=== PATIENT | male | born 1945 | race Caucasian/White ===

== ENCOUNTER → 2019-08-20 11:56 | Outpatient (BNVA) | payer MEDICARE, OTHER, SELFPAY | PROVIDERS: Family Provider Nurse Practitioner; PCP Nurse Practitioner; Visit Provider Nurse Practitioner | DX: R10.9 Unspecified abdominal pain (principal) | CPT/HCPCS: 80053; 85025 ==

== ENCOUNTER 2019-08-27 12:21 | Outpatient (CLI) | payer MEDICARE, OTHER, SELFPAY ==
--- NOTE | 2019-08-27 12:32 | CT_ITS ---
WS: [id number] CT ABDOMEN AND PELVIS NONCONTRAST HISTORY: abdomen pain TECHNIQUE: Imaging performed through the abdomen and pelvis. Coronal and sagittal reformats are submi tted. All CT scans at [facility] use at least one of these dose optimization techniques: automated exposure control; mA and/or kV adjustment per patient size (includes targeted exams where d ose is matched to clinical indication); or iterative reconstruction. DLP: 1197.35 mGycm COMPARISON: None available. Lower thorax: Lung bases are clear. Small hiatal hernia. Liver: Normal size liver with diffuse mild hepatic steatosis. No bile duct dilatation. Gallbladder: Unremarkable. Pancreas: Normal. Spleen: Normal size spleen with granulomata. Adrenal glands: Normal. Right kidney: Mild perinephric stranding. Exophytic low-attenuation nodule measuring 9 mm from the up per pole. Left kidney: Mild perinephric stranding no obstruction. Mild atherosclerosis with no aneurysm. No free fluid, intraperitoneal air or significant lymphadenopathy. GI tract: Moderate fecal retention throughout the colon. No significant diverticular disease. No mass or obstruction. The appendix is not definitely identified. No acute inflammatory process. Abdominal wall: Intact. Pelvis: Inguinal canals are patent bilaterally. There is no herniation of GI tract. No free fluid or adenopathy in the pelvis. Prostate gland is slightly enlarged. Benign appearing inguinal lymph nodes. Osseous structures: Degenerative disc disease and spondylosis in the lumbar spine. Slight reverse S-s haped curvature thoracolumbar spine. Mild degenerative changes at the hip joints. CT/CT abdomen pelvis wo con [id number] IMPRESSION: 1. No acute abdominal or pelvic abnormalities are identified. 2. Mild constipation with no GI tract obstruction. 3. No adenopathy. 4. Mild perinephric stranding with no renal obstruction.
[2019-08-27] MEDS: iohexol 300 mg/mL 50 mL Btl PO (14:19)
== END 2019-08-27 12:22 | disposition home or self-care (01) ==
LOC: RADWPI 12:27
PROVIDERS: Family Provider Nurse Practitioner; PCP Nurse Practitioner; Visit Provider Nurse Practitioner
DX: K59.00 Constipation, unspecified (principal); R10.9 Unspecified abdominal pain
CPT/HCPCS: 74176

== ENCOUNTER → 2019-10-21 09:09 | Outpatient (BNVA) | payer MEDICARE, OTHER, SELFPAY | PROVIDERS: Family Provider Nurse Practitioner; PCP Nurse Practitioner; Visit Provider Nurse Practitioner | DX: K59.01 Slow transit constipation (principal) | CPT/HCPCS: 74018; 81000; 85025 ==

== ENCOUNTER 2019-11-19 09:12 | Day surgery (SDC) | payer MEDICARE, OTHER, SELFPAY ==
[2019-11-15 13:48] VITALS: BMI 37.7
[2019-11-19 09:41] VITALS: BP 129/68; PULSE 71; RESP 18; TEMP 36.7; O2SAT 94
[2019-11-19] MEDS: sodium chloride 0.9% 1,000 ML 30 ML IV (09:55)
--- NOTE | 2019-11-19 10:29 | W.PM.OPSUD ---
Surgery/Procedure H&P Update DATE OF PROCEDURE: November 19, 2019 DATE H&P PERFORMED: 11/01/19 H&P UPDATE INFORMATION: I have reviewed H&P completed within last 30 days, I have examined patient prior to procedure and No changes to prior documentation PREOP DIAGNOSIS: History of colon polyps PLANNED PROCEDURE: Operation Date: 11/19/19 11:10 Proposed Procedures p Colonoscopy 60185 Z86.010(Not Applicable) - Suresh Kumar MD
--- NOTE | 2019-11-19 10:37 | ANES.PREANE2 ---
Pre-Anesthetic Assessment Pre-Anesthetic Assessment: Height/Weight: Height 1.73 m Weight 112.491 kg Temp Pulse Resp BP Pulse Ox 98.1 F 71 18 129/68 94 11/19/19 09:41 11/19/19 09:41 11/19/19 09:41 11/19/19 09:41 11/19/19 09:41 Preop Diagnosis: History of colon polyps Proposed Procedure: Operation Date: 11/19/19 11:10 Proposed Procedures p Colonoscopy 41286 Z86.010(Not Applicable) - Suresh Kumar MD Was Beta Selena taken within 24 hours: N/A Last intake: Intake Last Liquid Date 11/18/19 Last Solid Date 11/17/19 Last Intake: 23:00 Social: Social History: No alcohol and No tobacco Exam: Pre-Anes Outpt Exam: alert, oriented x 3, clear to auscultation bilaterally and regular rate & rhythm Airway: Submandibular: WNL Cervical ROM: WNL MP: 2 Dentition: False Pulmonary: Pulmonary: None reported CV/HEM: CV/HEM: None reported : : None reported Hepatic: Hepatic: None reported GI: GI: None reported Metabolic: Metabolic: None reported Musc/skel: Musc/skel: Lower Back Pain and OA/DJD Neuropsych: Neuropsych: None reported Anesthetic Plan: ASA status: 2 Anesthesia: Anesthesia Evaluation and MAC Risk of > 500 ml blood loss (7ml/kg in children): No Meds/Allergies Current Medications: Current Medications Generic Name Dose Route Start Last Admin Trade Name Freq PRN Reason Stop Dose Admin Sodium Chloride 1,000 mls @ 30 ml s/hr 11/19/19 09:45 11/19/19 09:55 Sodium Chloride 0.9% IV 11/20/19 09:44 30 mls/hr .Q24H SAM Administration PFSH Anesthesia PFSH: Medical History BPH with obstruction/lower urinary tract symptoms Chronic prostatitis Elevated PSA History of colon polyps Lumbar degenerative disc disease Surgical History History of carpal tunnel surgery BILATERAL History of circumcision History of colonoscopy with polypectomy (~2017) History of prostate biopsy 5 TIMES-NEGATIVE History of umbilical hernia repair S/P arthroscopy of left shoulder Family History Father , AT AGE 64,LUNG AND HEART DISEASE No problems noted. Mother , AT AGE 52 SUICIDE Suicide Sister Cancer PANCREATIC Denies family history of Anesthesia complication Bleeding disorder Social History Smoking and tobacco status: former smoker Second hand smoke exposure: No Smoking risk assessment/counseling performed?: No Alcohol intake: current Alcohol intake frequency: holidays/special occasions only Desire information about alcohol rehabilitation?: No Counseling given: No Desire information about substance/drug rehabilitation?: No Counseling given: No Adopted: No Caregiver/support person: No Lives independently: Yes Household members: significant other Marital status: Current occupational status: retired History of recent travel: No Current gender identity: Male Data Anesthesia Cardiac Studies: No Data to Display
[2019-11-19 11:21] VITALS: BP 122/64; PULSE 54; RESP 16; TEMP 36.5; O2SAT 92
[2019-11-19 11:35] VITALS: BP 139/69; PULSE 55; RESP 18; O2SAT 94
== END 2019-11-19 11:42 | disposition home or self-care (01) ==
PROVIDERS: PCP Nurse Practitioner; Visit Provider Surgery
PROC: 0DJD8ZZ Inspection of Lower Intestinal Tract, Via Natural or Artificial Opening Endoscopic (ICD-10-PCS; CPT 45378; principal; 2019-11-19 11:05)
DX: Z86.010 Personal history of colon polyps (principal); K57.30 Diverticulosis of large intestine without perforation or abscess without bleeding; N40.1 Benign prostatic hyperplasia with lower urinary tract symptoms; N13.8 Other obstructive and reflux uropathy; Z87.891 Personal history of nicotine dependence; M19.90 Unspecified osteoarthritis, unspecified site
CPT/HCPCS: 12345; 45378; J2704; J7030

== ENCOUNTER → 2020-02-25 10:25 | Outpatient (BNVA) | payer MEDICARE, OTHER, SELFPAY | PROVIDERS: PCP Nurse Practitioner; Visit Provider Urology | DX: N40.1 Benign prostatic hyperplasia with lower urinary tract symptoms (principal); R97.20 Elevated prostate specific antigen [PSA]; N13.8 Other obstructive and reflux uropathy | CPT/HCPCS: 81001; 84153 ==

== ENCOUNTER → 2020-03-10 13:09 | Outpatient (BNVA) | payer MEDICARE, OTHER, SELFPAY | PROVIDERS: PCP Nurse Practitioner; Referring Provider Nurse Practitioner; Visit Provider Orthopaedic Surgery | DX: M17.12 Unilateral primary osteoarthritis, left knee (principal) | CPT/HCPCS: 73560; 73565 ==

== ENCOUNTER → 2020-04-22 12:47 | Outpatient (BNVA) | payer MEDICARE, OTHER, SELFPAY | PROVIDERS: PCP Nurse Practitioner; Visit Provider Nurse Practitioner | DX: M25.432 Effusion, left wrist (principal); M25.532 Pain in left wrist | CPT/HCPCS: 73110; 80053; 85025 ==

== ENCOUNTER → 2020-05-27 10:18 | Outpatient (BNVA) | payer MEDICARE, OTHER, SELFPAY | PROVIDERS: PCP Nurse Practitioner; Visit Provider Urology | DX: R97.20 Elevated prostate specific antigen [PSA] (principal); N40.1 Benign prostatic hyperplasia with lower urinary tract symptoms; N13.8 Other obstructive and reflux uropathy | CPT/HCPCS: 84153 ==

== ENCOUNTER → 2020-06-02 12:56 | Outpatient (BNVA) | payer MEDICARE, OTHER, SELFPAY | PROVIDERS: PCP Nurse Practitioner; Visit Provider Urology | DX: R97.20 Elevated prostate specific antigen [PSA] (principal); N40.1 Benign prostatic hyperplasia with lower urinary tract symptoms; N13.8 Other obstructive and reflux uropathy | CPT/HCPCS: 81003 ==

== ENCOUNTER 2020-12-29 12:52 | Outpatient (CLI) | payer MEDICARE, OTHER, SELFPAY | END 2020-12-29 12:53 | disposition home or self-care (01) | PROVIDERS: PCP Nurse Practitioner; Visit Provider Urology | DX: R97.20 Elevated prostate specific antigen [PSA] (principal) | CPT/HCPCS: 84153 ==

== ENCOUNTER → 2021-04-07 13:03 | Outpatient (BNVA) | payer MEDICARE, OTHER, SELFPAY | PROVIDERS: PCP Nurse Practitioner; Visit Provider Urology | DX: R97.20 Elevated prostate specific antigen [PSA] (principal); N40.1 Benign prostatic hyperplasia with lower urinary tract symptoms; N13.8 Other obstructive and reflux uropathy | CPT/HCPCS: 84153 ==

== ENCOUNTER → 2021-06-22 10:44 | Outpatient (BNVA) | payer MEDICARE, OTHER, SELFPAY | PROVIDERS: PCP Nurse Practitioner; Visit Provider Urology | DX: R97.20 Elevated prostate specific antigen [PSA] (principal); N40.1 Benign prostatic hyperplasia with lower urinary tract symptoms; N13.8 Other obstructive and reflux uropathy | CPT/HCPCS: 84153 ==

== ENCOUNTER → 2021-06-29 10:49 | Outpatient (BNVA) | payer MEDICARE, OTHER, SELFPAY | PROVIDERS: PCP Nurse Practitioner; Visit Provider Urology | DX: N40.1 Benign prostatic hyperplasia with lower urinary tract symptoms (principal); N13.8 Other obstructive and reflux uropathy | CPT/HCPCS: 81003 ==

== ENCOUNTER → 2021-07-27 11:17 | Outpatient (BNVA) | payer MEDICARE, OTHER, SELFPAY | PROVIDERS: PCP Nurse Practitioner; Visit Provider Nurse Practitioner | DX: N40.1 Benign prostatic hyperplasia with lower urinary tract symptoms (principal); N13.8 Other obstructive and reflux uropathy; M17.12 Unilateral primary osteoarthritis, left knee; Z13.6 Encounter for screening for cardiovascular disorders | CPT/HCPCS: 80053; 80061; 85025 ==

== ENCOUNTER → 2021-12-14 09:16 | Outpatient (BNVA) | payer MEDICARE, OTHER, SELFPAY | PROVIDERS: PCP Nurse Practitioner; Visit Provider Nurse Practitioner | DX: N40.1 Benign prostatic hyperplasia with lower urinary tract symptoms (principal); N13.8 Other obstructive and reflux uropathy; M17.12 Unilateral primary osteoarthritis, left knee; Z13.6 Encounter for screening for cardiovascular disorders | CPT/HCPCS: 80053; 80061; 85025 ==

== ENCOUNTER → 2022-03-09 10:12 | Outpatient (BNVA) | payer MEDICARE, OTHER, SELFPAY | PROVIDERS: PCP Nurse Practitioner; Visit Provider Urology | DX: R97.20 Elevated prostate specific antigen [PSA] (principal) | CPT/HCPCS: 84153 ==

== ENCOUNTER → 2022-03-15 12:49 | Outpatient (BNVA) | payer MEDICARE, OTHER, SELFPAY | PROVIDERS: PCP Nurse Practitioner; Visit Provider Urology | DX: N40.1 Benign prostatic hyperplasia with lower urinary tract symptoms (principal); N13.8 Other obstructive and reflux uropathy; R97.20 Elevated prostate specific antigen [PSA] | CPT/HCPCS: 99213 ==

== ENCOUNTER → 2022-06-07 11:21 | Outpatient (BNVA) | payer MEDICARE, OTHER, SELFPAY | PROVIDERS: PCP Nurse Practitioner; Visit Provider Nurse Practitioner | DX: Z13.6 Encounter for screening for cardiovascular disorders (principal); N40.1 Benign prostatic hyperplasia with lower urinary tract symptoms; N13.8 Other obstructive and reflux uropathy; M17.12 Unilateral primary osteoarthritis, left knee | CPT/HCPCS: 80053; 80061; 85025 ==

== ENCOUNTER → 2022-08-19 09:36 | Outpatient (BNVA) | payer MEDICARE, OTHER, SELFPAY | PROVIDERS: PCP Nurse Practitioner; Visit Provider Nurse Practitioner | DX: N40.1 Benign prostatic hyperplasia with lower urinary tract symptoms (principal); N13.8 Other obstructive and reflux uropathy | CPT/HCPCS: 81000; 87086 ==

== ENCOUNTER 2023-03-16 08:28 | Outpatient (CLI) | payer MEDICARE, OTHER, SELFPAY ==
[2023-03-16 09:14] VITALS: BMI 29.9
--- NOTE | 2023-03-16 09:16 | ECG_ITS ---
[facility] Test Date: 2023-03-16 Pat Name: Lauri James Department: Room: Gender: Male Chief Engineer Research: Nora Briones : 1945 Requested By: Christina De Paz Order Number: [id number] Cornelius MD: Calixto Romo M.D. Interpretive Statements NAME OF STUDY: EXERCISE SESTAMIBI STRESS TEST INDICATION: [Htn, Family HX, ] EXERCISE DATA: The patient was exercised by Hayder protocol. Baseline heart rate was 55 beats per minute. Baseline blood pressure was 159/78 millimeters of mercury. Target heart rate was 121 beats per minute. Maximum heart rate achieved was 126, which was 104% of the target heart rate. Maximum blood pressure was 268/68 millimeters of mercury. Total exercise time was 4 minutes 13 seconds. Maximum METs achieved was 7. The reason for ending the test was maximal effort was achieved. The patient complained of shortness of breath during the stress test, which then resolved at the end of the test. ELECTROCARDIOGRAM: BASELINE: Showed sinus rhythm, normal axis, no significant ST-T changes at the baseline noted. [] EXERCISE: At the peak exercise level, [] No significant ST-T changes suggestive of ischemia noted. PVCs were seen. [] RECOVERY: During the recovery period, heart rate dropped appropriately. No significant ST-T changes in the recovery suggestive of ischemia noted. [] CONCLUSION: 1. Exercise capacity poor 2. Heart rate response was appropriate 3. Blood pressure response was hypertensive. 4. Symptoms not suggestive of ischemia. 5. Electrocardiogram portion of the stress test was not suggestive of ischemia. 6. Nuclear scan will be documented separately. Electronically Signed On 03-27-2023 15:42:49 CDT by Calixto Romo M.D. [email or web address]
--- NOTE | 2023-03-16 09:16 | NMCV_ITS ---
NM trudy perf SPECT r/s* [id number] Lauri James Age: 77 Gender: M : 1945 Exam Date: 03/16/2023 09:16 Ordering Phys: Christina De Paz CLINICAL SPECIALTY REP Technologist: EARL Cooper Exam Location: [facility] Indications: HYPERTENSION STRESS TEST Please see separate stress test report in [facility] for full findings IMAGE PROTOCOL Rest/Stress 1 Exercise Day Radiopharmaceutical Dose (mCi) Administration Site Administered by Rest: Tc-99m 11.0 IV EARL Cooper Sestamikirill Stress:Tc-99m 33.0 IV EARL Calixto Sestamibi Rest: 16-Mar-2023 60 Discovery 630 Stress: 16-Mar-2023 30 Discovery 630 Radiopharmaceutical was injected at 85 % maximum heart rate. Supine position only as patient was unable to lay prone. SPECT RESULTS Technical Quality: Excellent Raw Data Analysis: Normal Image Corrections: No attenuation or motion correction applied Summed Stress Score: 1 Summed Rest Score: 3 Summed Difference Score: 0 PERFUSION FINDINGS Small sized, fixed perfusion defect noted in the inferior wall. 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 FUNCTIONAL RESULTS (calculated via Gated SPECT) Stress Image LV EF (%): 68 Stress EDV (mL):117 TID: 0.88 Stress ESV (mL):38 FUNCTIONAL FINDINGS: There is normal left ventricular systolic function. IMPRESSIONS 1. Abnormal myocardial perfusion imaging with small sized prior infarct seen in the territory. 2. LV systolic function is normal Calixto Romo MD (Electronically Signed) Final Date: 17 March 2023 13:56 S
[2023-03-16 11:03] VITALS: BP 174/87; PULSE 76
== END 2023-03-16 08:29 | disposition home or self-care (01) ==
LOC: CDL 08:30
PROVIDERS: PCP Registered Nurse; Visit Provider Registered Nurse
DX: I10 Essential (primary) hypertension (principal); Z82.49 Family history of ischemic heart disease and other diseases of the circulatory system; I25.2 Old myocardial infarction
CPT/HCPCS: 36415; 78452; 93017; A9500

== ENCOUNTER 2023-05-05 11:16 | Outpatient (CLI) | payer MEDICARE, OTHER, SELFPAY ==
--- NOTE | 2023-05-05 11:45 | US_ITS ---
WS: [id number] ULTRASOUND SOFT TISSUES RIGHT face. HISTORY: R22.0 - Localized swelling, mass and lump, head COMPARISON: None available. TECHNIQUE: 2-D and color Doppler imaging is submitted. Palpable area along the RIGHT jaw corresponds to a hypoechoic nodule measuring 3 x 2 x 3 mm which is appears to be a small benign lymph node. IMPRESSION: Palpable area along the RIGHT jaw appears to be a small benign lymph node.
== END 2023-05-05 11:17 | disposition home or self-care (01) ==
LOC: RAD 11:17
PROVIDERS: PCP Registered Nurse; Visit Provider Registered Nurse
DX: R22.0 Localized swelling, mass and lump, head (principal)
CPT/HCPCS: 76536

== ENCOUNTER → 2023-08-31 09:54 | Outpatient (BNVA) | payer MEDICARE, OTHER, SELFPAY | PROVIDERS: PCP Registered Nurse; Visit Provider Registered Nurse | DX: I10 Essential (primary) hypertension (principal) | CPT/HCPCS: 80053; 80061; 85025 ==

== ENCOUNTER → 2023-11-15 08:34 | Outpatient (BNVA) | payer MEDICARE, OTHER, SELFPAY | PROVIDERS: PCP Registered Nurse; Visit Provider Registered Nurse | DX: L98.9 Disorder of the skin and subcutaneous tissue, unspecified (principal) | CPT/HCPCS: 88305 ==

== ENCOUNTER → 2023-12-05 09:44 | Outpatient (BNVA) | payer MEDICARE, OTHER, SELFPAY | PROVIDERS: PCP Registered Nurse; Visit Provider Dermatology | DX: C44.311 Basal cell carcinoma of skin of nose (principal); D18.01 Hemangioma of skin and subcutaneous tissue; L73.8 Other specified follicular disorders; L82.1 Other seborrheic keratosis; D17.21 Benign lipomatous neoplasm of skin and subcutaneous tissue of right arm | CPT/HCPCS: 99203 ==

== ENCOUNTER → 2023-12-19 09:11 | Outpatient (BNVA) | payer MEDICARE, OTHER, SELFPAY | PROVIDERS: PCP Registered Nurse; Visit Provider Dermatology | DX: C44.311 Basal cell carcinoma of skin of nose (principal) | CPT/HCPCS: 17311 ==

== ENCOUNTER → 2024-05-07 13:37 | Outpatient (BNVA) | payer MEDICARE, OTHER, SELFPAY | PROVIDERS: PCP Registered Nurse; Visit Provider Nurse Practitioner Family | DX: D48.5 Neoplasm of uncertain behavior of skin (principal); D17.21 Benign lipomatous neoplasm of skin and subcutaneous tissue of right arm; D17.22 Benign lipomatous neoplasm of skin and subcutaneous tissue of left arm; L82.1 Other seborrheic keratosis; D18.01 Hemangioma of skin and subcutaneous tissue; Z85.828 Personal history of other malignant neoplasm of skin | CPT/HCPCS: 11102; 99213 ==

== ENCOUNTER → 2024-05-28 11:27 | Outpatient (BNVA) | payer MEDICARE, OTHER, SELFPAY | PROVIDERS: PCP Registered Nurse; Visit Provider Registered Nurse | DX: N40.1 Benign prostatic hyperplasia with lower urinary tract symptoms (principal); N13.8 Other obstructive and reflux uropathy; R97.20 Elevated prostate specific antigen [PSA]; I10 Essential (primary) hypertension | CPT/HCPCS: 80053; 84153; 85025 ==

== ENCOUNTER → 2025-04-16 09:08 | Outpatient (BNVA) | payer MEDICARE, OTHER, SELFPAY | PROVIDERS: PCP Registered Nurse; Visit Provider Specialist | DX: M17.0 Bilateral primary osteoarthritis of knee (principal) | CPT/HCPCS: 73560; 73565; 99204 ==